=== PATIENT | female | born 1960 | race Caucasian/White ===

== ENCOUNTER 2016-05-04 14:31 | Observation (INO) ==
[2016-05-04] MEDS ORDERED: PNEUMOCOCCAL VACCINE (23 VALENT) 0.5 ML VIAL IM ONE (16:31)
[2016-05-04] MEDS ORDERED: ONDANSETRON 4 MG/2 ML VIAL IV PRN (17:38)
[2016-05-04] MEDS ORDERED: diphenhydrAMINE CAP 25 MG CAPSULE PO PRN (17:38)
[2016-05-04] MEDS ORDERED: MAGNESIUM SULF RIDER 4 GM in PREMIX 1 EACH IV PRN (17:38)
[2016-05-04] MEDS ORDERED: MAGNESIUM SULF RIDER 2 GM in PREMIX 1 EACH IV PRN ×2 (17:38→19:35)
[2016-05-04] MEDS ORDERED: BISACODYL 5 MG TABLET PO PRN (17:38)
[2016-05-04] MEDS ORDERED: DOCUSATE SODIUM 100 MG CAPSULE PO PRN (17:38)
[2016-05-04] MEDS ORDERED: ZALEPLON 5 MG CAPSULE PO PRN (17:38)
[2016-05-04] MEDS ORDERED: MORPHINE 2 MG/1 ML SYRINGE IV PRN (17:38)
[2016-05-04] MEDS ORDERED: ACETAMINOPHEN 325 MG TABLET PO PRN (17:38)
[2016-05-04] MEDS ORDERED: FLURAZEPAM HCL 15 MG PO PRN (17:41)
[2016-05-04] MEDS ORDERED: NITROGLYCERIN 2% OINT 1 INCH/GM PACK TOP ONE (17:49)
[2016-05-04 18:00] LABS: Basophils # 0.1 10*3/uL (0.0-0.2); Basophils % 0.5 % (0.0-0.8); Eosinophils # 0.3 10*3/uL (0.0-0.87); Hematocrit 43.9 VOL% (35.7-47.0); Hemoglobin 14.9 GM/DL (12.0-16.0); Immature Granulocytes % 0.3 %; Immature Granulocytes Absolute 0.03 #; Lymphocytes % 31.8 % (21.3-54.2); Mean Corpuscular HGB Conc 33.9 GM/DL (32-36); Mean Corpuscular Hemoglobin 30 PG (27-34); Mean Corpuscular Volume 88.2 FL (87-102); Mean Platelet Volume 10.5 FL (9.6-12.0); Monocytes # 0.8 10*3/uL (0.11-0.8); Neutrophils # 5.3 10*3/uL (1.4-7.4); Neutrophils % 56.4 % (38.7-73.9); Platelet Count 256 T/CUMM (130-400); Red Blood Count 4.98 MC/CUMM (3.8-5.5); Red Cell Distribution Width 12.7 % (9.3-17.3); White Blood Count 9.4 T/CUMM (4-12)
[2016-05-04 18:25] LABS: Troponin I Only < 0.015 NG/ML (0.00-0.045)
[2016-05-04 18:36] LABS: Albumin 4.3 G/DL (3.4-5.0); Bilirubin,Total 0.5 MG/DL (0.2-1.0); Calcium 9.9 MG/DL (8.5-10.1); Magnesium 1.8 MG/DL (1.8-2.4); Potassium 3.1 MMOL/L (3.5-5.1); Thyroid Stimulating Hormone 2.42 uIU/ml (0.358-3.74); Total Protein 7.2 G/DL (6.4-8.3)
[2016-05-04] MEDS: PROMETHAZINE 25 MG TABLET PO SCH ×2 (19:02→23:59)
--- NOTE | 2016-05-04 19:35 | XRay Report ---
Portable chest. Indication: Shortness of breath. The heart and mediastinal contours are unremarkable. The pulmonary vasculature is normal. There is no consolidation, pneumothorax, or pleural effusion. The osseous structures are unremarkable. Impression: No abnormality is seen. PROCEDURE INTERPRETED AT [facility] DEPARTMENT OF RADIOLOGY Final Report Signed by: Dr. Edilia Ta
[2016-05-04] MEDS ORDERED: POTASSIUM CHLORIDE 20 MEQ TABLET PO ONE (19:38)
--- NOTE | 2016-05-04 19:45 | Cardiology History & Physical ---
Assessment and Plan (1) Chest pain Status: Acute Assessment and plan: There are some typical and atypical characteristics of her chest pain. Her first set of cardiac biomarkers are negative. However, she does appear to have some dynamic anterior ECG changes concerning for a high grade proximal LAD lesion. I have discussed this with the patient, and she must be ruled out for myocardial infarction. I have discussed the role, risks and benefits of chronic catheterization and with the patient and she is agreeable to proceeding. This will be performed by Dr. Bob tomorrow. She'll be treated with beta ema, anticoagulation, aspirin, Nitropaste acutely. We will check fasting lipid profile and echocardiogram for further risk stratification as well. We will wait until her head scan is performed to begin the anticoagulation. She also appears to have a costochondritis and we will treat this with anti- inflammatories. She does not recall an injury to her chest or new activity. She may have an element of gastritis from her recent alcohol use, and we will treat her with a proton pump inhibitor. Current Visit: Yes (2) Slurred speech Status: Acute Assessment and plan: This presentation is concerning for a possible transient ischemic attack. Alternatively, she may have also been experiencing an arrhythmia that resulted in some neurologic deficits and possible chest discomfort simultaneously. We' ll obtain a head CT and carotid Dopplers. Current Visit: Yes (3) Hypertension Status: Chronic Assessment and plan: We are going to hold her diuretics for now because of her hypokalemia. We will monitor her blood pressure and adjust her antihypertensives accordingly. Current Visit: Yes (4) Hyperlipidemia Status: Chronic Current Visit: Yes (5) Hypokalemia Status: Acute Assessment and plan: We will hold her diuretics, if this has to be restarted it should be done at a lower dose. We will replace her potassium and follow. Current Visit: Yes History of Present Illness Chief complaint: cp History of present illness: Ms. Landon is a 55 year old female without a prior cardiac history, with risk factors significant for a family history of early coronary artery disease, hypertension, hyperlipidemia. She is admitted to the hospital for chest pain. It is somewhat difficult to delineate the pattern of her symptoms. From what I can ascertain she has been experiencing a chest discomfort for at least one month. It is described as a soreness in her chest, as if a horse has kicked her in the chest. It waxes and wanes, probably occurs daily. There are no clear triggers or alleviators. It does not necessarily radiate, although on one occasion has radiated into her arm. It can last for up to one hour, stuttering in nature. Sometimes she feels short of breath with this. Today, when she experienced this symptom she also had diaphoresis, shortness of breath , and slurred speech. She was on the phone with a coworker who is present during the interview and confirms that she became very concerned that the patient may be having a stroke due to the pattern of her speech. She also had a severe left chest pain for which she went to the hospital approximately 2 weeks ago. It seems this was more of a sharp shoulder pain that was self- limited. She was diagnosed with hypokalemia at that time. Today, when her symptoms recurred and worsened, she believed it was due to her potassium, and therefore went to her primary care doctor to have this reevaluated. While in the office she had more chest pain and an ECG was performed which was abnormal, and she was referred for admission. After interviewing the family, coworkers, friends and the patient, there is some consensus that she actually has had a decline in her exercise tolerance over the past several months. She has attributed this to a 20 pound weight gain. In terms of her slurred speech, and the acknowledges that some time ago she was having this episodically, and had not experienced this "in a while". She had associated increased salivation at that time. Currently she has no neurologic deficits, and she was not experiencing any other deficits at the time of her slurred speech. She does acknowledge a sensation of heart racing with this symptom, and she infrequently does experience some heart racing or palpitations symptoms. She does not have lower extremity edema. She has had some ongoing fatigue for the last one year. She was diagnosed with depression a prescribed antidepressants, but she is not taking this because she does not believe that she is depressed. She has labile blood pressure, sometimes hypotensive, sometimes hypertensive. She has a history of myalgias on a statin in the past although she does not recall which one. She denies current myalgias. She usually does not drink alcohol, but over the last several months she has been drinking a few beers a day. She does not use recreational drugs or tobacco. Upon arrival, she did have some chest discomfort and we applied Nitropaste which seemed to improve her symptoms. She was given nitroglycerin sprays at her doctor's office earlier today and she also believes at that time that this improved her symptoms. Her father underwent CABG in his 50s. She's had no recent change in her medications. Her ECG at her primary care physician's office had anterior T-wave inversion. Upon arrival here, this is resolved, even with chest pain. She does not have melena, or bright red blood per rectum. She denies any contraindication to anticoagulant therapy. She does not have an IVP dye allergy. She has no history of renal dysfunction. Home Medications Medication Instructions Recorded Confirmed Type Chlorthalidone 50 mg PO DAILY 05/04/16 05/04/16 History Flurazepam HCl 15 mg PO BEDTIME PRN 05/04/16 05/04/16 History Labetalol Tab [Trandate Tab] 150 mg PO DAILY 05/04/16 05/04/16 History Potassium Chloride 10 meq PO TID 05/04/16 05/04/16 History Pravastatin [Pravachol] 80 mg PO BEDTIME 05/04/16 05/04/16 History Promethazine Tab [Phenergan Tab] 50 mg PO Q6H 05/04/16 05/04/16 History tiZANidine [Zanaflex] 4 mg PO TID 05/04/16 05/04/16 History Allergies Allergy/AdvReac Type Severity Reaction Status Date / Time No Known Allergies Allergy Verified 05/04/16 16:31 12 point system: reviewed and no additional remarkable complaints except as stated Medical,Surgical,& Family Hx - Medical History Cardio: History of: Hypertension Endocrine: History of: Dyslipidemia - Surgical History Cardiac Surgeries: Sugical HX of: Cardiac Catheterization HEENT Surgeries: Surgical HX of: Tonsilectomy & Adenoidectomy Reproductive Surgeries: Surgical HX of;: Hysterectomy (PARTIAL) Orthopedic Surgeries: Surgical HX of;: Orthopedic Surgery (ACL REPAIR X 3 YEARS) - Family History Family History: Reports;: Family Cancer (FATHER), Family Heart Disease (FATHER) , Family Hypertension (FATHER) - Social History Smoking Status: Never smoker Frequency of Alcohol Use: Occasionally Type of Drug Use: None Marital Status: Lives With:: Spouse Functional capacity: independent ambulation Cardiology Physical Exam - Constitutional Vitals: Vital Signs Temp Pulse Resp BP Pulse Ox 97.4 F L 78 22 161/84 97 05/04/16 16:22 05/04/16 16:58 05/04/16 18:45 05/04/16 16:22 05/04/16 16:22 Intake and Output 05/04/16 05/04/16 05/04/16 07:59 15:59 23:59 Other: Weight 74.861 kg Patient Weight 05/04/16 23:59 Weight 74.861 kg Exam: General appearance: normal weight, no acute distress - Head Head exam: Present: normal inspection, normocephalic, atraumatic. Absent: hematoma, laceration - Eye Eye exam: Present: EOMI. Absent: conjunctival injection, nystagmus, periorbital swelling, scleral icterus, laceration to eyelids Pupils: Present: PERRL. Absent: constricted, dilated, fixed, irregular, unequal - ENT ENT exam: Present: normal exam, normal external ear exam - Neck Neck exam: Present: normal inspection. Absent: lymphadenopathy, meningismus, tenderness, thyromegaly - Respiratory Respiratory exam: Present: clear to auscultation bilaterally. Absent: accessory muscle use - Cardiovascular Cardiovascular exam: Present: regular rate and rhythm. Absent: carotid bruit, gallop, JVD, rubs - GI/Abdominal GI/Abdominal exam: Present: normal bowel sounds, soft. Absent: distended, firm , guarding, hernia, mass, tenderness, rebound. - Extremities Exam Extremities exam: Present: normal inspection, normal capillary refill. Absent: calf tenderness, edema - Back Exam Back exam: Present: normal inspection. Absent: muscle spasm, vertebral tenderness - Neurological Exam Neurological exam: Present: alert, oriented X3, grossly intact without resting or intention tremor - Psychiatric Psychiatric exam: Present: normal affect, normal mood - Skin Skin exam: Present: normal color, warm, dry, intact. Absent: cyanosis, diaphoretic, rash, urticaria There is exquisite chest wall tenderness to palpation on the left side Result/EKG - Labs CBC & BMP: 05/04/16 17:47 05/04/16 17:47 Lab Results: I have reviewed the past 24 hour labs Labs: Laboratory Results - last 24 hr 05/04/16 05/04/16 05/04/16 17:47 17:47 17:47 WBC 9.4 RBC 4.98 Hgb 14.9 Hct 43.9 MCV 88.2 MCH 30 MCHC 33.9 RDW 12.7 Plt Count 256 MPV 10.5 Neut % (Auto) 56.4 Lymph % (Auto) 31.8 [place] % (Auto) 8.0 Eos % (Auto) 3.0 Baso % (Auto) 0.5 Neut # (Auto) 5.3 Lymph # (Auto) 3.0 [place] # (Auto) 0.8 Eos # (Auto) 0.3 Baso # (Auto) 0.1 Immature Gran % 0.3 Nucleated RBC % 0.0 Immature Gran # 0.03 Nucleated RBCs # 0.00 Sodium 143 Potassium 3.1 L Chloride 101 Carbon Dioxide 30 Anion Gap 15.1 H BUN 21 H Creatinine 1.00 GFR Calculation 64 BUN/Creatinine Ratio 21.00 H Glucose 88 Calculated Osmolality 286.0 Calcium 9.9 Magnesium 1.8 Total Bilirubin 0.50 AST 27 ALT 48 Alkaline Phosphatase 69 Total Creatine Kinase 77 CK-MB (CK-2) < 1.0 Troponin I < 0.015 Total Protein 7.2 Albumin 4.3 Globulin 2.9 Albumin/Globulin Ratio 1.4 TSH 3rd Generation 2.420 - Diagnostic Findings Procedure: Chest x-ray: report reviewed by me - EKG EKG results: interpreted by me, sinus rhythm, no acute changes
[2016-05-04 19:47] LABS: Partial Thromboplastin Time 28.2 SECS (0-40)
--- NOTE | 2016-05-04 20:23 | CT Report ---
CT of the head without contrast. Indication: Signs and symptoms of a stroke. Slurred speech. The ventricles are normal in size and configuration. There is no mass effect, midline shift, or area of hemorrhage. No ischemic lesions are seen. The calvarium is intact. There is mild mucosal thickening within the left sphenoid sinus. Impression: No acute intracranial abnormality is seen. Mild paranasal sinus disease. The CT exam was performed using one or more of the following dose reduction techniques: Automated exposure control, adjustment of the mA and/or kV according to patient size, or use of iterative reconstruction technique. PROCEDURE INTERPRETED AT [facility] DEPARTMENT OF RADIOLOGY Final Report Signed by: Dr. Edilia Ta
[2016-05-04] MEDS ORDERED: PRAVASTATIN 40 MG TABLET PO SCH (21:00)
[2016-05-04] MEDS: SODIUM CHLORIDE 0.45% 1,000 ML IV SCH (21:33)
[2016-05-04] MEDS: POTASSIUM CHLORIDE 10 MEQ TABLET PO SCH (21:33)
[2016-05-04] MEDS: tiZANidine 4 MG TABLET PO SCH (21:33)
[2016-05-04] MEDS: ASPIRIN EC 325 MG TABLET PO SCH (21:33)
[2016-05-04] MEDS: LABETALOL 100 MG TABLET PO SCH (21:33)
[2016-05-04 22:11] LABS: Troponin I Only < 0.015 NG/ML (0.00-0.045)
--- NOTE | 2016-05-04 22:20 | Ultrasound Report ---
History slurred speech and TIA Grayscale, spectral Doppler, and color flow analysis performed and interpreted There is a mild amount of soft and calcified plaque in both proximal internal carotid arteries Maximum systolic velocities are 69 on the right and 67 on the left Peak systolic ratios are 1.2 in the right and 0.9 and the left There is antegrade flow in both vertebral arteries Impression: Mild amount of plaque with less than 50% diameter stenoses bilaterally by NASCET criteria PROCEDURE INTERPRETED AT [facility] DEPARTMENT OF RADIOLOGY Final Report Signed by: Dr. Valeria Ta
[2016-05-04] MEDS ORDERED: ENOXAPARIN 80 MG/0.8 ML SYRINGE SUBCUT ONE (22:39)
[2016-05-04] MEDS ORDERED: KETOROLAC 30 MG/1 ML VIAL IM ONE (22:41)
[2016-05-05 01:13] LABS: Basophils # 0.1 10*3/uL (0.0-0.2); Basophils % 0.7 % (0.0-0.8); Eosinophils # 0.3 10*3/uL (0.0-0.87); Eosinophils % 3.7 % (0.00-10.9); Hematocrit 39.5 VOL% (35.7-47.0); Hemoglobin 13.8 GM/DL (12.0-16.0); Immature Granulocytes % 0.1 %; Immature Granulocytes Absolute 0.01 #; Lymphocytes % 42.6 % (21.3-54.2); Mean Corpuscular HGB Conc 34.9 GM/DL (32-36); Mean Corpuscular Hemoglobin 30 PG (27-34); Mean Corpuscular Volume 85.5 FL (87-102); Mean Platelet Volume 10.8 FL (9.6-12.0); Monocytes # 0.6 10*3/uL (0.11-0.8); Monocytes % 8.9 % (1.7-12.7); Neutrophils # 3.1 10*3/uL (1.4-7.4); Platelet Count 262 T/CUMM (130-400); Red Blood Count 4.62 MC/CUMM (3.8-5.5); Red Cell Distribution Width 12.8 % (9.3-17.3); White Blood Count 7.1 T/CUMM (4-12)
[2016-05-05 01:41] LABS: Calcium 9.2 MG/DL (8.5-10.1); Magnesium 1.8 MG/DL (1.8-2.4); Osmolality,Calculated 285.1 MOS/KG (273-304); Potassium 3.2 MMOL/L (3.5-5.1)
[2016-05-05 01:44] LABS: Risk Ratio 3.9; VLDL CHOLESTEROL 40.6 MG/DL
[2016-05-05 01:46] LABS: Troponin I Only < 0.015 NG/ML (0.00-0.045)
[2016-05-05] MEDS: SODIUM CHLORIDE 0.45% 1,000 ML IV SCH (05:28)
[2016-05-05] MEDS: PROMETHAZINE 25 MG TABLET PO SCH ×2 (06:28→13:31)
[2016-05-05] MEDS ORDERED: DIAZEPAM 5 MG TABLET PO SCH (07:00)
[2016-05-05] MEDS ORDERED: diphenhydrAMINE CAP 25 MG CAPSULE PO SCH (07:00)
--- NOTE | 2016-05-05 07:25 | History and Physical Update ---
Sedation H&P Update - History and Physical H&P was reviewed, the patient examined and there: are no changes in the patients condition since last H&P was completed. - Dictation Physical: refer to H&P completed by admitting physician - Physical Exam Mental Status: alert and oriented Heart: regular rate and rhythm Lung: clear to auscultation Abdomen: within normal limits Vitals: within normal limits - Sedation Plan for Sedation: moderate Patient Consent: Procedure disscussed with patient and patinet has consented., Risks and benefits were discussed with patient,including infection,, bleeding, injury to surrounding structures, seizure, temporary nerve, Patient understands and accepts potential risks/benefits and agrees to, proceed. ASA Class: II Airway Assessment: Class III: Soft palate, base of uvula visible
[2016-05-05] MEDS ORDERED: diphenhydrAMINE CAP 25 MG CAPSULE PO ONE (07:27)
[2016-05-05] MEDS ORDERED: DIAZEPAM 5 MG TABLET PO ONE (07:27)
[2016-05-05] MEDS ORDERED: POTASSIUM CHLORIDE RIDER 10 MEQ in PREMIX 1 EACH IV PRN (07:41)
--- NOTE | 2016-05-05 07:51 | EKG Report ---
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
--- NOTE | 2016-05-05 07:51 | EKG Report ---
Stationary ECG Study [facility] Test Date: 05/04/2016 5:31:19 PM Pat Name: PALMA SALCIDO Department: Room: 287 Gender: F Fishing Hand: : 1960 Requested by: Janina Us Order Number: [id number] Reading MD: STEPHEN LEÓN Intervals [place] Rate: 79 P: 36 FL: 172 QRS: -78 QRSD: 95 T: 36 QT: 410 QTc: 444 Interpretive Statements SINUS RHYTHM CONSISTENT WITH PULMONARY DISEASE LEFT ANTERIOR FASCICULAR BLOCK Electronically Signed On 05-05-16 10:39:08 CDT by STEPHEN LEÓN [email or web address]
[2016-05-05] MEDS: ASPIRIN EC 325 MG TABLET PO SCH (08:07)
[2016-05-05] MEDS ORDERED: VERAPAMIL 5 MG/2 ML VIAL ONE (08:10)
[2016-05-05] MEDS ORDERED: NITROGLYCERIN DRIP 50 MG/250 ML BOTTLE IV ONE (08:10)
[2016-05-05] MEDS ORDERED: HEPARIN/NACL 0.9% 2 UNITS/ML 1,000 ML IV ONE (08:10)
[2016-05-05] MEDS ORDERED: LIDOCAINE 1% 20 ML VIAL ONE (08:10)
[2016-05-05] MEDS ORDERED: fentaNYL 100 MCG/2 ML VIAL ONE (08:29)
[2016-05-05] MEDS ORDERED: MIDAZOLAM 2 MG/2 ML VIAL ONE ×2 (08:29→08:43)
[2016-05-05] MEDS ORDERED: diphenhydrAMINE 50 MG/1 ML VIAL ONE (08:38)
[2016-05-05] MEDS ORDERED: ENOXAPARIN 60 MG/0.6 ML SYRINGE ONE (08:43)
[2016-05-05] MEDS ORDERED: PANTOPRAZOLE 40 MG TABLET PO SCH (09:00)
[2016-05-05] MEDS ORDERED: LABETALOL 100 MG TABLET PO SCH (09:00)
--- NOTE | 2016-05-05 09:01 | Cardiac Catheterization ---
Date of Procedure:: 05/05/16 Pre-op Diagnosis: Chest pain with ST segment changes and increased risk factors Post-op diagnosis: same Procedure: After signed an informed consent was obtained, the patient was prepped and draped in standard fashion for right radial access. Time out was recorded. 0.5 mL of 1% lidocaine were infiltrated in the skin and subcutaneous tissue overlying the right radial artery and Seldinger technique was utilized with a Angiocath to obtain access to the right radial artery. A [employer] glide wire was then advanced into the midforearm under fluoroscopic guidance. The Angiocath was removed and a 6 [place] Terumo glide sheath was placed over the Glidewire. The sheath was aspirated and flushed and then 5 mg of verapamil and 200 g of nitroglycerin were given through the sheath. At this time an 035 J-wire was used to guide a [place] 6 [place] catheter into the central aorta across the aortic valve and into the ventricle. A 10 mL hand injection was used for ventriculography in the NAJERA projection. Pressure measurements and pullback measurements were obtained. The [place] catheter was then used to engage the left main coronary artery and multiple orthogonal views of the left system were obtained. The catheter then was torqued into the right coronary artery and orthogonal views of the right system were obtained. The catheter was then exchanged over the wire. The sheath was aspirated and flushed. The gettering filament machine operator reviewed the films. And a TR band was placed over the glide sheath and used for hemostasis. Total contrast exposure 60 cc of omnipaque Total x-ray exposure: 2.2 min fluoroscopy time and 142 mGy air Kerma Findings: 1. EF 65% 2. Hemodynamics LV: 138/8 EDP:19 Ao:135/69 3. Left main: Angiographically normal 4: Left anterior descending artery: There is mild on very smooth ostial LAD plaquing this is very mild. The LAD itself is a large vessel and it is tortuous. The atheroma at the ostium and proximal portion of the vessel appears to be approximately 20% or less. 5: Left circumflex artery: This is a very large dominant vessel pain is very tortuous and has had no high-grade or even significant atheroma. 6: Right coronary artery: This is a very large vessel. It is nondominant but gives a very healthy PDA. There is a very small RV marginal branch that has high-grade ostial stenosis this vessel is approximately 1 mm in diameter. Assessment: 1. Preserved cardiac ejection fraction at 65% with increased left ventricular end-diastolic pressure at 19 2. Mild luminal irregularities in the proximal LAD and a dominant left coronary artery system with no high-grade epicardial stenosis Plan: 1. Therapeutic lifestyle changes. 2. Search for other causes of chest discomfort. Recommend adjustment of medications to correct hypokalemia and therapy lifestyle changes caloric restriction and exercise and continue with current lipid therapy. 3. Plan to discharge when discharge criteria are met unless there are other issues that need to be addressed. Implants: None Surgeon / Physician: Melodie Bob Poke In: none Estimated blood loss: none Specimens: none sent Condition: stable Disposition: floor - Medications / Follow-up
[2016-05-05] MEDS: POTASSIUM CHLORIDE 10 MEQ TABLET PO SCH (10:36)
[2016-05-05] MEDS: tiZANidine 4 MG TABLET PO SCH (10:36)
[2016-05-05] MEDS: LABETALOL 100 MG TABLET PO SCH (10:36)
[2016-05-05 12:40] VITALS: BP 117/81
--- NOTE | 2016-05-05 14:25 | Discharge Summary ---
Hospital Course - Hospital Course Hospital Course: Ms. Landon is a 55 year old female without a prior cardiac history, with risk factors significant for a family history of early coronary artery disease, hypertension and hyperlipidemia. She was directly admitted to the telemetry unit yesterday with complaints of chest pain and episodes of slurred speech. She also acknowledges that she infrequently does experience some heart racing or palpitations symptoms. Her cardiac biomarkers were negative 3. However, she had some dynamic anterior ECG changes concerning for a high grade proximal LAD lesion. Because of her chest pain, ST segment changes and risk factors, patient was taken to the [facility] this morning per Dr. Bob to definitively rule out ACS. Post heart catheterization patient Remedios had the following impressions: Impressions: 1. EF 65% 2. Hemodynamics LV: 138/8 EDP:19 Ao:135/69 3. Left main: Angiographically normal 4: Left anterior descending artery: There is mild on very smooth ostial LAD plaquing this is very mild. The LAD itself is a large vessel and it is tortuous. The atheroma at the ostium and proximal portion of the vessel appears to be approximately 20% or less. 5: Left circumflex artery: This is a very large dominant vessel pain is very tortuous and has had no high-grade or even significant atheroma. 6: Right coronary artery: This is a very large vessel. It is nondominant but gives a very healthy PDA. There is a very small RV marginal branch that has high-grade ostial stenosis this vessel is approximately 1 mm in diameter. 7. Dominant left coronary artery system with no high-grade epicardial stenosis She was transferred to the telemetry unit in stable condition post catheterization. Patient was seen and examined on telemetry. She has done well post catheterization and has been without complications. She is without any complaints. Right radial cath site is soft without bleeding and hematoma. Right radial pulse 2+. Patient denies chest pain, heaviness and tightness. Creatinine is stable at 1.1. She is currently in normal sinus rhythm with heart rates in the 80s without any overt arrhythmias or ectopy noted. Vital signs are stable. Having felt that patient has met maximal medical therapy she will be discharged home in stable condition. Patient was noted to be hypokalemic upon admission to the hospital. Her diuretics have been held and potassium has been replaced. We will send her home on potassium 10 mEq 3 times daily and continue to hold her diuretics. She will follow-up with Dr. Whittaker in 2 weeks. Patient has had no further episodes of slurred speech this admission. She will be discharged home on a 30 day event monitor. She has been instructed to report to the [facility] office today after discharge to have this set up. She verbalizes understanding of this. Patient has been given a follow-up with Dr. Bob in 1 week with CBC, BMP, magnesium and EKG. Discharge instructions and medications have been reviewed with the patient. She and her granddaughter verbalized understanding. Patient was given a prescription for aspirin at discharge. Diagnosis - Discharge Diagnosis (1) Chest pain Status: Resolved (2) Hypokalemia Status: Resolved (3) Slurred speech Status: Resolved Specialty Discharge - Follow Up or Referrals Follow up with: Melodie Bob DO [Physician] - 1 Week (follow-up with Dr. Bob in 1 week with CBC, BMP, magnesium and EKG. ) Discharge Plan - Discharge Data Disposition: Disch To Home/Self Care Condition at Discharge: Stable Discharge Diet: heart healthy Activity: resume usual activities as tolerated Hygiene: may shower Weight Bearing at Discharge: weight bear as tolerated Driving: no restrictions Contact your physician if you experience:: fever over 101, Difficulty voiding, Redness or swelling, Nausea/Vomiting, Shortness of breath, Bleeding, pain uncontrolled by pain medications - Discharge Medications New Aspirin EC Tab 325 mg PO DAILY #30 tablet Continue tiZANidine [Zanaflex] 4 mg PO TID Promethazine Tab [Phenergan Tab] 50 mg PO Q6H Pravastatin [Pravachol] 80 mg PO BEDTIME Potassium Chloride 10 meq PO TID Labetalol Tab [Trandate Tab] 150 mg PO DAILY Flurazepam HCl 15 mg PO BEDTIME PRN PRN Reason: Sleep Discontinued Chlorthalidone 50 mg PO DAILY - Follow Up or Referral - Forms/Instructions Instructions: [facility] Cardiac Catheterization Instructions -Radial Artery Exam - Constitutional Vitals: Period Temp Pulse Resp BP Sys/Ferrara Pulse Ox Last 24 Hr 96.7 F-980.2 F 63-91 18-22 91-161/58-84 95-97 General appearance: normal weight, no acute distress - Head Head exam: Present: normal inspection, normocephalic, atraumatic - Neck Neck exam: Present: normal inspection. Absent: lymphadenopathy, tenderness, thyromegaly - Respiratory Respiratory exam: Present: clear to auscultation bilaterally. Absent: accessory muscle use, chest wall tenderness, rales, rhonchi, stridor, wheezes - Cardiovascular Cardiovascular exam: Present: regular rate and rhythm. Absent: carotid bruit, gallop, rubs, systolic murmur - GI/Abdominal GI/Abdominal exam: Present: normal bowel sounds, soft. Absent: distended, firm , mass, tenderness - Extremities Exam Extremities exam: Present: normal inspection, other (Normal upper and lower extremity pulses. Right radial cath site stable without bleeding and hematoma.) . Absent: normal capillary refill, calf tenderness, edema - Neurological Exam Neurological exam: Present: alert, oriented X3, normal gait - Skin Skin exam: Present: normal color, warm, dry. Absent: cyanosis, erythema Discharge Results Procedures and tests throughout hospitalization: Pending Orders 05/05/16 07:41 Aldosterone Stat Renin Activity Stat 05/05/16 08:09 CL heart Routine 05/06/16 04:00 Basic Metabolic Panel IN AM Comp Blood Count Auto Diff IN AM Magnesium IN AM Labs on day of discharge: Labs from last 24 hours 05/05/16 05/05/16 05/05/16 00:48 00:48 00:48 WBC 7.1 RBC 4.62 Hgb 13.8 Hct 39.5 MCV 85.5 L MCH 30 MCHC 34.9 RDW 12.8 Plt Count 262 MPV 10.8 Neut % (Auto) 44.0 Lymph % (Auto) 42.6 [place] % (Auto) 8.9 Eos % (Auto) 3.7 Baso % (Auto) 0.7 Neut # (Auto) 3.1 Lymph # (Auto) 3.0 [place] # (Auto) 0.6 Eos # (Auto) 0.3 Baso # (Auto) 0.1 Immature Gran % 0.1 Nucleated RBC % 0.0 Immature Gran # 0.01 Nucleated RBCs # 0.00 INR PT Patient/Control Mix Circ Anticoag PTT Sodium 142 Potassium 3.2 L Chloride 100 Carbon Dioxide 32 Anion Gap 13.2 BUN 21 H Creatinine 1.10 H GFR Calculation 57 BUN/Creatinine Ratio 19.00 Glucose 97 Calculated Osmolality 285.1 Calcium 9.2 Magnesium 1.8 Total Bilirubin AST ALT Alkaline Phosphatase Total Creatine Kinase CK-MB (CK-2) Troponin I Total Protein Albumin Globulin Albumin/Globulin Ratio Triglycerides 203 H Cholesterol 203 H LDL Cholesterol 126.0 VLDL Cholesterol 40.6 HDL Cholesterol 52 Heart Disease Risk Ratio 3.90 TSH 3rd Generation 05/05/16 05/04/16 05/04/16 00:48 21:17 17:47 WBC RBC Hgb Hct MCV MCH MCHC RDW Plt Count MPV Neut % (Auto) Lymph % (Auto) [place] % (Auto) Eos % (Auto) Baso % (Auto) Neut # (Auto) Lymph # (Auto) [place] # (Auto) Eos # (Auto) Baso # (Auto) Immature Gran % Nucleated RBC % Immature Gran # Nucleated RBCs # INR PT Patient/Control Mix Circ Anticoag PTT Sodium 143 Potassium 3.1 L Chloride 101 Carbon Dioxide 30 Anion Gap 15.1 H BUN 21 H Creatinine 1.00 GFR Calculation 64 BUN/Creatinine Ratio 21.00 H Glucose 88 Calculated Osmolality 286.0 Calcium 9.9 Magnesium 1.8 Total Bilirubin 0.50 AST 27 ALT 48 Alkaline Phosphatase 69 Total Creatine Kinase 69 72 CK-MB (CK-2) 1.0 1.1 Troponin I < 0.015 < 0.015 Total Protein 7.2 Albumin 4.3 Globulin 2.9 Albumin/Globulin Ratio 1.4 Triglycerides Cholesterol LDL Cholesterol VLDL Cholesterol HDL Cholesterol Heart Disease Risk Ratio TSH 3rd Generation 2.420 05/04/16 05/04/16 05/04/16 17:47 17:47 17:46 WBC 9.4 RBC 4.98 Hgb 14.9 Hct 43.9 MCV 88.2 MCH 30 MCHC 33.9 RDW 12.7 Plt Count 256 MPV 10.5 Neut % (Auto) 56.4 Lymph % (Auto) 31.8 [place] % (Auto) 8.0 Eos % (Auto) 3.0 Baso % (Auto) 0.5 Neut # (Auto) 5.3 Lymph # (Auto) 3.0 [place] # (Auto) 0.8 Eos # (Auto) 0.3 Baso # (Auto) 0.1 Immature Gran % 0.3 Nucleated RBC % 0.0 Immature Gran # 0.03 Nucleated RBCs # 0.00 INR 1.0 PT Patient/Control Mix 11.0 Circ Anticoag PTT 28.2 Sodium Potassium Chloride Carbon Dioxide Anion Gap BUN Creatinine GFR Calculation BUN/Creatinine Ratio Glucose Calculated Osmolality Calcium Magnesium Total Bilirubin AST ALT Alkaline Phosphatase Total Creatine Kinase 77 CK-MB (CK-2) < 1.0 Troponin I < 0.015 Total Protein Albumin Globulin Albumin/Globulin Ratio Triglycerides Cholesterol LDL Cholesterol VLDL Cholesterol HDL Cholesterol Heart Disease Risk Ratio TSH 3rd Generation - Imaging and Cardiology Cardiology Procedure: report reviewed by me DS: Provider Date of admission: 05/04/16 17:38 Primary care physician: . No PCP Attending physician on admission: Melodie Bob DO Consults: 05/04/16 18:39 Consult to Pharmacy [CONS] Routine Reason for Pharmacy Consult: Adjust Meds Renal Funct Discharging clinician: Edilia Lawrence NP Expected date of discharge: 05/05/16
--- NOTE | 2016-05-06 08:15 | ECHO Report ---
Elvisminishivam Teresa Exam Date: 05/05/2016 10:11 Referring Physician: Technologist: Francisca Seth RDCS Age: 55 Ht (in): 63 Wt (lb): 165 Gender: F Exam Location: [facility] Echo Indications: Chest pain, unspecified, Slurred speech, Hyperlipidemia, unspecified, Hypokalemia BP: 115 / 71 HR: 86 Rhythm: Sinus Technical Quality: Fair IMPRESSIONS Normal LV systolic and diastolic function. Mild tricuspid regurgitation. MEASUREMENTS (Male / Female) Normal Values 2D ECHO LV Diastolic Diameter PLAX 4.0 cm 4.2 - 5.9 / 3.9 - 5.3 cm LV Systolic Diameter PLAX 2.4 cm LV Fractional Shortening PLAX 41.5 % IVS Diastolic Thickness 0.9 cm 0.6 - 1.0 / 0.6 - 0.9 cm LVPW Diastolic Thickness 0.9 cm 0.6 - 1.0 / 0.6 - 0.9 cm RV Internal Dim ED PLAX 2.7 cm Aortic Root Diameter 2.6 cm LA Systolic Diameter LX 3.4 cm 3.0 - 4.0 / 2.7 - 3.8 cm DOPPLER TR Peak Velocity 263.0 cm/s TR Peak Gradient 27.7 mmHg FINDINGS Left Ventricle Normal left ventricular cavity size. Normal left ventricular wall thickness. Left ventricular ejection fraction is estimated at 60 %. Right Ventricle The right ventricle is normal in size and function. Right Atrium The right atrium is normal in size. Left Atrium The left atrium is normal in size. Mitral Valve Morphologically normal mitral valve without significant stenosis or prolapse. There is no mitral regurgitation. Aortic Valve Morphologically normal aortic valve without significant sclerosis or stenosis. There is no aortic regurgitation. Tricuspid Valve Morphologically normal tricuspid valve. Trace to mild tricuspid valve regurgitation. Tricuspid regurgitation velocities suggest a PAP of 38 mmHg. Pulmonic Valve Morphologically normal pulmonic valve without significant stenosis. There is no pulmonic regurgitation. Pericardium Normal pericardium without effusion. Aorta Normal ascending aorta dimension. Janina sU MD (Electronically Signed) Final Date: 06 May 2016 08:14
--- NOTE | 2016-05-06 19:01 | Event Note ---
I personally interviewed and examined the patient, reviewed the chart and discussed medical decision-making with practitioner Howard. I have read her discharge summary and agree with the findings therein. I have been unable to access that note to add this addendum or edit that note since yesterday. That is why this document was created separately.
[2016-05-09 12:14] LABS: Renin Activity 3.9 ng/mL/h
== END 2016-05-05 15:48 | disposition home or self-care (01) ==
LOC: N.TELEN
PROVIDERS: ADMIT Internal Medicine Cardiovascular Disease; ATTEND Internal Medicine Cardiovascular Disease
PROC: CLCCHCL (ICD-10-PCS; 2016-05-05 09:45)